=== PATIENT | male | born 1995 | race Two or more races ===

== ENCOUNTER 2023-03-21 06:58 | Emergency (ER) | payer OTHER ==
[~2023-03-21] VITALS: Ht 190.5 cm; Wt 116.6 kg
[2023-03-21] MEDS ORDERED: SERTRALINE20 MG/1 ML PO (07:47)
[2023-03-21 09:18] LABS: HEMATOCRIT 49.1 % (39.0-48.0); MEAN CELL VOLUME 86.7 fL (80.0-100.00); MEAN CORPUSCULAR HEMOGLOBIN 29.9 pg (27.00-32.0); MEAN CORPUSCULAR HGB CONC 34.5 g/dl (32.0-36.0); PLATELET COUNT 241 K/uL (150-450); RED BLOOD COUNT 5.67 M/uL (4.00-6.00); RED CELL DISTRIBUTION WIDTH 13.4 % (11.5-14.5)
[2023-03-21 10:03] LABS: PARTIAL THROMBOPLASTIN TIME 29.7 SECONDS (22.0-34.0); PROTHROMBIN TIME 10.5 SECONDS (9.0-11.5)
[2023-03-21 10:48] LABS: ALBUMIN 4.5 gm/dL (3.4-5.0); BILIRUBIN TOTAL 0.9 mg/dL (0.3-1.2); CALCIUM 9.8 mg/dL (8.5-10.1); CREATININE SERUM 0.91 mg/dL (0.70-1.30); GFR 99.2; GLOBULINA 3.6 G/DL (2.4-3.5); POTASSIUM 4.14 mEq/L (3.5-5.1); TOTAL PROTEIN 8.1 gm/dL (6.4-8.2)
== END 2023-03-21 14:19 | disposition home or self-care (01) ==
LOC: ER 06:59
PROVIDERS: General Practice
DX: R07.89 Other chest pain (principal)